=== PATIENT | male | born 1960 | race Caucasian/White ===

== ENCOUNTER 2021-02-23 18:23 | Emergency (ER) | payer OTHER ==
[2021-02-23] MEDS ORDERED: ASPIRIN CHEW 81 MG TABLET PO STA (18:39)
[2021-02-23] MEDS ORDERED: NITROGLYCERIN SL 0.4 MG TABLET SL STA (18:39)
--- NOTE | 2021-02-23 18:46 | ED Physician Documentation ---
PD HPI CHEST PAIN - Stated complaint Stated Complaint: CHEST PX,NAUSEA - Chief complaint Chief Complaint: Cardiac - History obtained from History obtained from: Patient - Additional information Additional information: 60-year-old gentleman with no history of coronary disease. He does have sleep apnea for which he has a hypoglossal nerve stimulator and his only medication is loratadine for allergies. No significant family medical history of coronary disease. He woke from a nap around 230 this afternoon, 4 hours ago with diffuse substernal chest pressure otherwise nonradiating to the back, arms, neck or jaw. It is associated with nausea and dry heaving. There is no association with sweats, shortness of breath. No recent travel, no leg pain or pedal edema. No history of DVT or PE. He has not had aspirin today. Review of Systems Ten Systems: 10 systems reviewed and negative Constitutional: reports: Reviewed and negative Nose: denies: Rhinorrhea / runny nose Throat: denies: Sore throat Cardiac: reports: Chest pain / pressure. denies: Palpitations, Pedal edema, Calf pain Respiratory: denies: Hemoptysis, Wheezing PD PAST MEDICAL HISTORY - Past Medical History Past Medical History: Yes Respiratory: Sleep apnea - Present Medications Home Medications: Ambulatory Orders Medication Instructions Recorded Confirmed Loratadine [Allergy Relief] 20 mg PO DAILY 02/23/21 02/23/21 - Allergies Allergies/Adverse Reactions: Allergies Allergy/AdvReac Type Severity Reaction Status Date / Time No Known Drug Allergies Allergy Verified 02/23/21 18:39 - Social History Does the pt have substance abuse?: No - Family History Family history: reports: Non contributory PD ED PE NORMAL - Vitals Vital signs reviewed: Yes - General General: Alert and oriented X 3, No acute distress - HEENT HEENT: PERRL, EOMI - Neck Neck: Supple, no meningeal sign, No bony TTP, No bruit - Cardiac Cardiac: RRR, No murmur - Respiratory Respiratory: No respiratory distress, Clear bilaterally - Abdomen Abdomen: Normal bowel sounds, Soft, Non tender - Back Back: No CVA TTP, No spinal TTP - Derm Derm: Normal color, Warm and dry - Extremities Extremities: No edema, No calf tenderness / cord - Neuro Neuro: Alert and oriented X 3, Normal speech Results - Vitals Vitals: Vital Signs - 24 hr 02/23/21 02/23/21 02/23/21 18:26 19:30 20:30 Temperature 36.0 C L Heart Rate 79 68 72 Respiratory 16 11 L 13 Rate Blood Pressure 172/95 H 126/58 L 132/80 H O2 Saturation 97 94 95 02/23/21 21:17 Temperature Heart Rate 67 Respiratory 10 L Rate Blood Pressure 130/86 H O2 Saturation 97 Oxygen O2 Source Room air - EKG (time done) 1832 Rate: Rate (enter#) (76) Rhythm: NSR [place]: Normal Intervals: Normal OR, RBBB QRS: Normal Ischemia: Normal ST segments Compare to prior EKG: Old EKG unavailable 1700 Rate: Rate (enter#) (77) Rhythm: NSR [place]: Normal Intervals: Normal OR, RBBB QRS: Normal Ischemia: Normal ST segments Compare to prior EKG: Unchanged from prior EKG (no change from #1) Computer interpretation: Agree with computer - Labs Labs: Laboratory Tests 02/23/21 02/23/21 02/23/21 18:40 18:40 18:40 WBC 6.5 RBC 5.22 Hgb 16.1 Hct 46.0 MCV 88.1 MCH 30.8 MCHC 35.0 RDW 12.8 Plt Count 242 MPV 10.8 Neut # (Auto) 4.2 Lymph # (Auto) 1.3 L [place] # (Auto) 0.7 Eos # (Auto) 0.2 Baso # (Auto) 0.0 Absolute Nucleated RBC 0.00 Nucleated RBC % 0.0 Sodium 138 Potassium 3.8 Chloride 101 Carbon Dioxide 26 Anion Gap 11.0 BUN 22 H Creatinine 1.1 Estimated GFR (MDRD) 68 L Glucose 176 H Calcium 9.0 Total Bilirubin 1.1 H AST 33 ALT 30 Alkaline Phosphatase 104 Troponin I High Sens 3.0 Total Protein 7.7 Albumin 4.4 Globulin 3.3 Albumin/Globulin Ratio 1.3 Lipase 36 02/23/21 02/23/21 19:28 20:33 WBC RBC Hgb Hct MCV MCH MCHC RDW Plt Count MPV Neut # (Auto) Lymph # (Auto) [place]uming # (Auto) Eos # (Auto) Baso # (Auto) Absolute Nucleated RBC Nucleated RBC % Sodium Potassium Chloride Carbon Dioxide Anion Gap BUN Creatinine Estimated GFR (MDRD) Glucose Calcium Total Bilirubin AST ALT Alkaline Phosphatase Troponin I High Sens Cancelled 2.8 Total Protein Albumin Globulin Albumin/Globulin Ratio Lipase PD MEDICAL DECISION MAKING - ED course ED course: 60-year-old gentleman presents with substernal chest pressure starting after eating a heavy meal. His EKG shows a right bundle branch block but no ischemic changes and a subsequent EKG showed no dynamic changes. His pain defervesced while in the department. 2 troponins were done and negative. The patient was counseled as to the diagnosis and need for follow-up. I counseled the patient with regard to signs and symptoms that would necessitate an urgent reevaluation in the emergency department. They understand they are welcome to return at any time if worse or if not improving as expected. This document was made in part using voice recognition software. While efforts are made to proofread this documents, sound alike and grammatical errors may occur. Departure - Departure Disposition: 01 Home, Self Care Clinical Impression: Atypical chest pain Condition: Good Record reviewed to determine appropriate education?: Yes Instructions: ED Chest Pain Atypical Unkn Cause Comments: At this juncture there is no indication that the chest pain is from your heart or from a dangerous etiology. Return if worsening or if your symptoms change. Follow-up with your doctor regardless for consideration for stress testing. Probably reasonable to take a baby aspirin a day until that happens. Discharge Date/Time: 02/23/21 21:18
[2021-02-23 18:47] LABS: BASOPHILS % (AUTO) 0.6 %; EOSINOPHILS # (AUTO) 0.2 10^3/uL (0.0-0.7); EOSINOPHILS % (AUTO) 2.6 %; HGB - HEMOGLOBIN 16.1 g/dL (14.0-18.0); LYMPHOCYTES # (AUTO) 1.3 10^3/uL (1.5-3.5); LYMPHOCYTES % (AUTO) 20.2 %; MEAN CORPUSCULAR HEMOGLOBIN 30.8 pg (27.0-31.0); MEAN CORPUSCULAR VOLUME 88.1 fL (80.0-94.0); MEAN PLATELET VOLUME 10.8 fL (7.4-11.4); MONOCYTES # (AUTO) 0.7 10^3/uL (0.0-1.0); MONOCYTES % (AUTO) 11.4 %; NEUTROPHILS # (AUTO) 4.2 10^3/uL (1.5-6.6); NEUTROPHILS % (AUTO) 64.7 %; PLT - PLATELET COUNT 242 10^3/uL (130-450); RED BLOOD COUNT 5.22 10^6/uL (4.70-6.10); RED CELL DISTRIBUTION WIDTH 12.8 % (12.0-15.0); WHITE BLOOD COUNT 6.5 x10^3/uL (4.8-10.8)
[2021-02-23] MEDS ORDERED: ONDANSETRON 4 MG/2 ML VIAL IVP STA (18:56)
[2021-02-23 19:02] LABS: ALBUMIN 4.4 g/dL (3.2-5.5); ALBUMIN/GLOBULIN RATIO 1.3 (1.0-2.2); BILIRUBIN,TOTAL 1.1 mg/dL (0.2-1.0); CREATININE 1.1 mg/dL (0.6-1.2); POTASSIUM 3.8 mmol/L (3.5-5.0); TOTAL PROTEIN 7.7 g/dL (6.7-8.2)
--- NOTE | 2021-02-23 19:14 | XRAY Report ---
PROCEDURE: Chest 1 View X-Ray INDICATIONS: Chest Pain TECHNIQUE: One view of the chest was acquired. COMPARISON: None. FINDINGS: Surgical changes and devices: A probable vagal nerve stimulator device is seen with pulse generator i n the right chest and lead extending into the right neck.. Lungs and pleura: No pleural effusions or pneumothorax. Lungs are clear. Mediastinum: Mediastinal contours appear normal. Heart size is normal. Bones and chest wall: No suspicious bony lesions. Overlying soft tissues appear unremarkable. IMPRESSION: No acute cardiopulmonary abnormality. Reviewed by: José Gaston MD on 02/23/2021 7:13 PM PST Approved by: José Gaston MD on 02/23/2021 7:13 PM [facility] Station ID: [id number]
[2021-02-23 21:18] VITALS: BP 130/86
== END 2021-02-23 21:18 | disposition home or self-care (01) ==
LOC: ED 18:23
DX: R07.89 Other chest pain (principal); R11.2 Nausea with vomiting, unspecified
CPT/HCPCS: 36415; 71045; 80053; 83690; 84484; 85025; 93005; 96374; 99282; 99284; A9270

== ENCOUNTER 2022-06-01 12:30 | Outpatient (CLI) | payer OTHER ==
[2022-06-01 13:29] LABS: ESTIMATED AVERAGE GLUCOSE 123 mg/dL (70-100); HEMOGLOBIN A1c% 5.9 % (4.27-6.07)
[2022-06-02 08:09] LABS: HCV AB Non Reactive (Non Reactive)
[2022-06-02 09:09] LABS: HIV SCREEN 4TH GENERATION Non Reactive (Non Reactive)
== END 2022-06-01 12:31 | disposition home or self-care (01) ==
LOC: LAB 12:30
PROVIDERS: ATTEND Internal Medicine
DX: Z13.1 Encounter for screening for diabetes mellitus (principal); Z11.59 Encounter for screening for other viral diseases
CPT/HCPCS: 36415; 83036; 86803; 87389